=== PATIENT | female | born 1965 | race Caucasian/White ===

== ENCOUNTER 2024-11-08 14:31 | Outpatient (CLI) | payer OTHER, SELFPAY ==
--- NOTE | 2024-11-08 14:36 | XR_ITS ---
FINAL REPORT CLINICAL HISTORY: Bilateral foot pain COMPARISON: None FINDINGS: RIGHT FOOT Three views demonstrate no acute fracture or dislocation. There are mild degenerative changes of the first MTP joint. There is a moderate hallux valgus deformity. No acute soft tissue abnormality is seen. IMPRESSION: Mild degenerative changes without acute bony abnormality. Reviewed, Interpreted and Dictated by Pito Jay MD Transcribed by Tahira Carrillo Authenticated and [facility]
--- NOTE | 2024-11-08 14:36 | XR_ITS ---
FINAL REPORT CLINICAL HISTORY: Bilateral foot pain COMPARISON: None FINDINGS: LEFT FOOT Three views demonstrate no acute fracture or dislocation. The joint spaces appear normal. No acute soft tissue abnormality is seen. IMPRESSION: No acute bony abnormality. Reviewed, Interpreted and Dictated by Pito Jay MD Transcribed by Tahira Carrillo Authenticated and [facility]
== END 2024-11-08 23:59 | disposition home or self-care (01) ==
LOC: RAD 14:34
PROVIDERS: PCP Family Medicine; Visit Provider Nurse Practitioner
DX: M19.071 Primary osteoarthritis, right ankle and foot (principal); M79.672 Pain in left foot
CPT/HCPCS: 73630